=== PATIENT | male | born 1960 | race Caucasian/White ===

== ENCOUNTER 2017-03-02 20:01 | Inpatient (IN) | payer BC ==
[~2017-03-02] VITALS: Ht 185.4 cm; Wt 72.1 kg
--- NOTE | ~2017-03-02 | PRO ---
PATIENT:LEONIDAS HODGSON MEDICAL RECORD: [id number] : 60 LOCATION:D.M2 D.2135 ADMISSION DATE: 03/02/17 PROCEDURE PERFORMED BY: FOSTER GARAY MD DATE OF PROCEDURE: 03/05/2017 PROCEDURE: Fiberoptic bronchoscopy. INDICATION: Mr. Hodgson is a 56-year-old gentleman who has pneumonia, upper lobe. Fiberoptic bronchoscopy was carried out to inspect the airway as well as to obtain specimens for culture and sensitivity. MONITORING: EKG, pulse, blood pressure, SpO2 were monitored throughout the procedure. PROCEDURE IN DETAIL: The bronchoscope was easily passed through the mouth. He has some anatomical abnormality because of CA at the base of the tongue. The vocal cords were normal, moving equally on phonation. The main trachea was normal with thick yellowish secretion in the main trachea. The feroz was sharp. The left main bronchus subsegment to the left lower lobe, left upper lobe and lingula within normal range. No endobronchial lesion was seen. There are yellowish secretions on the left side. The right main bronchus was normal. The subsegment to the right upper lobe, right middle lobe, right lower lobe within normal range. No endobronchial lesions seen. There were also thick yellowish secretions on the right side. Specimen washing was obtained for routine culture and sensitivity, AFB and fungus as well as cytology. The patient tolerated the procedure very well. I will recommend to have ENT consultation for evaluation of his upper airway. TRANSINT:[id number] Voice Confirmation ID: [id number] DOCUMENT ID: [id number] FOSTER GARAY MD CC: CLEO CORTES DO [id number] DICTATION DATE: 03/05/17 1237 PASSENGER SERVICE MANAGER: 03/06/17 1231 DIS IN 03/05/17 [place] [id number] [place] [id number]
--- NOTE | ~2017-03-02 | CN ---
PATIENT NAME:LEONIDAS HODGSON MEDICAL RECORD: [id number] : 60 LOCATION:D. D.2135 ADMIT DATE: 03/02/17 ACCOUNT: [id number] CONSULTING PHYSICIAN: FOSTER GARAY MD REFERRING PHYSICIAN: JV CORTES DO DATE OF CONSULTATION: 03/03/2017 PULMONOLOGY CONSULTATION CONSULT REQUESTING PHYSICIAN: vJ Cortes MD. REASON FOR CONSULTATION: Pneumonia, acute cough. HISTORY OF PRESENT ILLNESS: Mr. Hodgson is a 56-year-old gentleman who has acute cough and bronchitis. He had some fever last Wednesday. He was not feeling well. The patient was given some antibiotic. The patient went back to work. Yesterday he was seen in Dr. Cortes's office and the chest x-ray showed that he had pneumonia, which is not resolving. Now the patient was admitted to the hospital for pneumonia and further IV antibiotic. He was also having some shortness of breath. REVIEW OF SYSTEMS: HEENT: There is sinus congestion. RESPIRATORY: As in history of present illness. CARDIOVASCULAR: Negative. GASTROINTESTINAL: Negative. GENITOURINARY: Negative. Other review of the systems is negative. PAST MEDICAL HISTORY: 1. Mild COPD. 2. History of CA of the tongue diagnosed in 2009. He was treated with radiation therapy. He is cancer-free. Follow up with oncologist. PAST SURGICAL HISTORY: He had a T&A in 1970. ALLERGIES: There are no known drug allergies. MEDICATIONS: He is on metoprolol and aspirin. PERSONAL AND SOCIAL HISTORY: The patient is an ex-smoker. He quit in 2009. He was diagnosed with cancer of the tongue. He is a nondrinker. FAMILY HISTORY: Unknown. Noncontributory. PHYSICAL EXAMINATION: GENERAL: Now, the patient is lying comfortably in bed. He is not in acute distress. VITAL SIGNS: The blood pressure is 105/71, pulse is 51, respirations are 16 and temperature 97.5. SPO2 is 97% on 2 liters. HEENT: Conjunctivae were pink. Sclerae nonicteric. NECK: Supple, no JVD. CHEST: Excursion is minimal on both sides. No wheeze, no rales. HEART: Rhythm regular, normal sound. No murmur. ABDOMEN: Soft, bowel sounds present. No hepatosplenomegaly. CONSULT REPORT [id number] LEONIDAS HODGSON RECTAL: Deferred. EXTREMITIES: No cyanosis, no clubbing, no pedal edema. SKIN: Warm, normal turgor. CENTRAL NERVOUS SYSTEM: The patient is awake and alert. There is no obvious cranial nerve abnormality. The gait was not tested. CHEST RADIOGRAPH: There is apical scarring. No acute infiltrate. OTHER LABORATORY DATA: CBC: The WBC on admission was 15.3, hemoglobin 13.4, hematocrit 39.4, the platelet count 305. Chemistry: Sodium 139, potassium 3.5, BUN is 15, creatinine 0.9, glucose 93. IMPRESSION: 1. Possible pneumonia, biapical; possible scarring from previous infectious process. I will doubt radiation pneumonitis. 2. Acute cough. 3. Leukocytosis secondary to acute tracheobronchitis. 4. Chronic obstructive pulmonary disease without exacerbation. 5. History of cancer of the tongue status post radiation therapy in 2009. 6. Ex-smoker. RECOMMENDATIONS: 1. I will check the CT scan of the chest. 2. Adjust the dose of Levaquin. 3. Mucinex DM 2 tablets b.i.d. 4. Followup labs. Dr. Cortes, thank you for involving me in the care of Mr. Hodgson. TRANSINT:[id number] Voice Confirmation ID: [id number] DOCUMENT ID: [id number] FOSTER GARAY MD CC: JV CORTSE DO [id number] DICTATION DATE: 03/03/17 151 WASTEWATER PROCESS ENGINEER: 03/03/17 7193 ADM IN [facility] [address] [place] [place] [id number]
[2017-03-02 19:00] VITALS: BP 98/57
[2017-03-02 21:11] LABS: BASOPHILS 0.2 % (0-2); HEMATOCRIT 39.4 % (42.0-54.0); HEMOGLOBIN 13.4 g/dL (13.5-17.5); IMMATURE GRANULOCYTES 0.4 % (0-5); LYMPHOCYTES 9.3 % (15-50); MCH 32.4 pg (26.0-34.0); MCV 95.4 fL (80.0-100.0); MEAN PLATELET VOLUME 9.6 fL (7.4-10.4); MONOCYTES 6.9 % (2-11); NEUTROPHILS 82.2 % (40-80); PLATELET COUNT 305 10x3/uL (130-400); RBC 4.13 10x6/uL (4.20-6.10); RDW 12.9 % (11.5-14.5); WBC 16.3 10x3/uL (4.8-10.8)
[2017-03-02] MEDS ORDERED: OMNICEF300 MG PO (21:29)
[2017-03-02] MEDS ORDERED: TOPROL XL25 MG PO (21:29)
[2017-03-02] MEDS ORDERED: MUCINEX600 MG PO (21:30)
[2017-03-02] MEDS ORDERED: BAYER CHEWABLE81 MG PO (21:30)
[2017-03-02 21:36] LABS: ALBUMIN 3.5 g/dL (3.4-5.0); ALKALINE PHOSPHATASE 116 U/L (46-116); ALT (SGPT) 21 U/L (10-68); CALC OSMOLALITY 279 mosm/kg (275-300); CALCIUM 9.1 mg/dL (8.5-10.1); CARBON DIOXIDE 29.4 mmol/L (21.0-32.0); CHLORIDE - SERUM 102 mmol/L (98-107); CREATININE - SERUM 0.9 mg/dL (0.6-1.3); GLUCOSE 94 mg/dL (74-106); PROTEIN - SERUM 6.5 g/dL (6.4-8.2); SODIUM 140 mmol/L (136-145); UREA NITROGEN 16 mg/dL (7-18); eGFR NON AFRICAN AMERICAN > 90 mL/min (90-120)
[2017-03-03 04:00] VITALS: BP 105/58
[2017-03-03 04:21] LABS: BASOPHILS 0.1 % (0-2); EOSINOPHILS 3.2 % (0-7); HEMATOCRIT 39.1 % (42.0-54.0); HEMOGLOBIN 13.2 g/dL (13.5-17.5); IMMATURE GRANULOCYTES 0.2 % (0-5); LYMPHOCYTES 12.4 % (15-50); MCH 32.4 pg (26.0-34.0); MCHC 33.8 g/dL (31.0-37.0); MCV 95.8 fL (80.0-100.0); MEAN PLATELET VOLUME 9.6 fL (7.4-10.4); MONOCYTES 8.5 % (2-11); NEUTROPHILS 75.6 % (40-80); PLATELET COUNT 289 10x3/uL (130-400); RBC 4.08 10x6/uL (4.20-6.10); RDW 12.9 % (11.5-14.5)
[2017-03-03 04:26] LABS: WBC 10.4 10x3/uL (4.8-10.8)
[2017-03-03 05:12] LABS: ALBUMIN 2.8 g/dL (3.4-5.0); ALKALINE PHOSPHATASE 106 U/L (46-116); ALT (SGPT) 21 U/L (10-68); CALCIUM 8.2 mg/dL (8.5-10.1); CARBON DIOXIDE 30.5 mmol/L (21.0-32.0); CREATININE - SERUM 0.9 mg/dL (0.6-1.3); GLUCOSE 93 mg/dL (74-106); PROTEIN - SERUM 6.4 g/dL (6.4-8.2); UREA NITROGEN 15 mg/dL (7-18); eGFR NON AFRICAN AMERICAN > 90 mL/min (90-120)
[2017-03-03 06:13] LABS: CALC OSMOLALITY 278 mosm/kg (275-300); CHLORIDE - SERUM 103 mmol/L (98-107); POTASSIUM - SERUM 3.5 mmol/L (3.5-5.1); SODIUM 139 mmol/L (136-145)
[2017-03-03 06:39] VITALS: BP 98/57; BMI 18.3
[2017-03-03 07:50] VITALS: BP 108/64
[2017-03-03 11:02] VITALS: Ht 185.4 cm; Wt 72.1 kg
[2017-03-03 11:19] VITALS: BP 105/71
[2017-03-03 15:46] VITALS: BP 108/78
[2017-03-03 19:00] VITALS: BP 101/62
[2017-03-04 04:00] VITALS: BP 98/53
[2017-03-04 05:02] LABS: BASOPHILS 0.2 % (0-2); HEMATOCRIT 40.7 % (42.0-54.0); HEMOGLOBIN 13.6 g/dL (13.5-17.5); IMMATURE GRANULOCYTES 0.1 % (0-5); LYMPHOCYTES 11.3 % (15-50); MCH 32.1 pg (26.0-34.0); MCHC 33.4 g/dL (31.0-37.0); MEAN PLATELET VOLUME 9.6 fL (7.4-10.4); MONOCYTES 8.3 % (2-11); NEUTROPHILS 78.1 % (40-80); PLATELET COUNT 316 10x3/uL (130-400); RBC 4.24 10x6/uL (4.20-6.10); RDW 12.8 % (11.5-14.5); WBC 9.1 10x3/uL (4.8-10.8)
[2017-03-04 05:27] LABS: ALBUMIN 2.9 g/dL (3.4-5.0); ALKALINE PHOSPHATASE 104 U/L (46-116); ALT (SGPT) 25 U/L (10-68); CALCIUM 8.8 mg/dL (8.5-10.1); CHLORIDE - SERUM 105 mmol/L (98-107); CREATININE - SERUM 0.8 mg/dL (0.6-1.3); GLUCOSE 100 mg/dL (74-106); PROTEIN - SERUM 6.5 g/dL (6.4-8.2); SODIUM 141 mmol/L (136-145); eGFR NON AFRICAN AMERICAN > 90 mL/min (90-120)
[2017-03-04 05:30] LABS: CALC OSMOLALITY 278 mosm/kg (275-300); POTASSIUM - SERUM 4.2 mmol/L (3.5-5.1); UREA NITROGEN 7 mg/dL (7-18)
[2017-03-04 07:00] VITALS: BP 100/68
[2017-03-04 12:53] VITALS: BP 109/66
[2017-03-04 16:56] VITALS: BP 121/81
[2017-03-04 19:00] VITALS: BP 128/70
[2017-03-04 22:05] LABS: BASOPHILS 0.2 % (0-2); EOSINOPHILS 1.9 % (0-7); HEMATOCRIT 41.3 % (42.0-54.0); IMMATURE GRANULOCYTES 0.2 % (0-5); LYMPHOCYTES 9.8 % (15-50); MCH 32.3 pg (26.0-34.0); MCHC 33.9 g/dL (31.0-37.0); MCV 95.2 fL (80.0-100.0); MEAN PLATELET VOLUME 9.6 fL (7.4-10.4); MONOCYTES 7.9 % (2-11); PLATELET COUNT 342 10x3/uL (130-400); RBC 4.34 10x6/uL (4.20-6.10); RDW 12.6 % (11.5-14.5); WBC 11.3 10x3/uL (4.8-10.8)
[2017-03-04 22:13] LABS: APTT 32.6 SECONDS (22.8-39.4); INR 1.03 (0.85-1.17); PROTIME 13.3 SECONDS (11.6-15.0)
[2017-03-05] VITALS (8 sets, daily range): BP systolic 99–112; BP diastolic 46–72
[2017-03-05] MEDS ORDERED: LEVAQUIN750 MG PO (15:56)
[2017-03-06 19:09] LABS: ACID FAST SMEAR Negative (()); AFB SPECIMEN PROCESSING Concentration (())
[2017-03-08 13:13] LABS: FUNGUS STAIN Final report (())
== END 2017-03-05 16:51 | disposition home or self-care (01) | DRG 190 ==
LOC: D.M2 20:01
PROVIDERS: Internal Medicine Pulmonary Disease; ADMIT Family Medicine
PROC: 0BB38ZX Excision of Right Main Bronchus, Via Natural or Artificial Opening Endoscopic, Diagnostic (ICD-10-PCS; 2017-03-05)
PROC: 0BB78ZX Excision of Left Main Bronchus, Via Natural or Artificial Opening Endoscopic, Diagnostic (ICD-10-PCS; principal; 2017-03-05 12:30)
DX: J44.0 Chronic obstructive pulmonary disease with (acute) lower respiratory infection (principal); J18.9 Pneumonia, unspecified organism; Z87.891 Personal history of nicotine dependence; Z85.810 Personal history of malignant neoplasm of tongue

== ENCOUNTER 2020-10-14 20:29 | Emergency (ER) | payer OTHER ==
[~2020-10-14] VITALS: Ht 185.4 cm; Wt 63.5 kg
[~2020-10-14 20:29] MED LIST: BAYER CHEWABLE81 MG PO; LEVAQUIN750 MG PO; MUCINEX600 MG PO; OMNICEF300 MG PO; TOPROL XL25 MG PO
[2020-10-14 20:36] VITALS: Ht 185.4 cm; Wt 63.5 kg
[2020-10-14 20:53] LABS: BASOPHILS 0.1 % (0-2); EOSINOPHILS 0.4 % (0-7); HEMATOCRIT 42.5 % (42.0-54.0); HEMOGLOBIN 14.5 g/dL (13.5-17.5); IMMATURE GRANULOCYTES 0.5 % (0-5); LYMPHOCYTE ABS# 0.39 10x3/uL (1.32-3.57); MCH 32.3 pg (26.0-34.0); MCHC 34.1 g/dL (31.0-37.0); MCV 94.7 fL (80.0-100.0); MEAN PLATELET VOLUME 9.5 fL (7.4-10.4); MONOCYTES 4.8 % (2-11); NEUTROPHIL ABS# 17.93 10x3/uL (1.78-5.38); NEUTROPHILS 92.2 % (40-80); RBC 4.49 10x6/uL (4.20-6.10); RDW 13.4 % (11.5-14.5); WBC 19.4 10x3/uL (4.8-10.8)
[2020-10-14 20:55] LABS: PLATELET COUNT 268 10x3/uL (130-400)
[2020-10-14 21:10] LABS: CALC OSMOLALITY 276 mosm/kg (275-300); CALCIUM 8.7 mg/dL (8.5-10.1); CHLORIDE - SERUM 99 mmol/L (98-107); CREATININE - SERUM 0.9 mg/dL (0.6-1.3); GLUCOSE 100 mg/dL (74-106); POTASSIUM - SERUM 3.5 mmol/L (3.5-5.1); SODIUM 137 mmol/L (136-145); UREA NITROGEN 21 mg/dL (7-18); eGFR NON AFRICAN AMERICAN > 90 mL/min (90-120)
[2020-10-14 21:22] LABS: ALBUMIN 3.6 g/dL (3.4-5.0); ALKALINE PHOSPHATASE 119 U/L (30-120); ALT (SGPT) 23 U/L (10-68); BILIRUBIN - TOTAL 0.72 mg/dL (0.2-1.3); CKMB 2.1 U/L (0.0-3.6); CREATINE KINASE 104 UL (21-232); PROTEIN - SERUM 7.1 g/dL (6.4-8.2)
[2020-10-14 21:26] LABS: TROPONIN-I < 0.017 ng/mL (0.000-0.060)
[2020-10-14 21:33] LABS: INR 1.24 (0.85-1.17); PROTIME 14.5 SECONDS (11.6-15.0)
[2020-10-14 21:47] LABS: BILIRUBIN NEGATIVE (NEGATIVE); KETONE NEGATIVE (NEGATIVE); NITRITE NEGATIVE (NEGATIVE); UROBILINOGEN NORMAL mg/dL (< 2)
[2020-10-15] MEDS ORDERED: ALBUTEROL SULF8.5 GM INH (00:45)
[2020-10-15] MEDS ORDERED: PREDNISONE20 MG PO (00:45)
[2020-10-15] MEDS ORDERED: LEVAQUIN750 MG PO (00:45)
[2020-10-15 06:30] VITALS: BP 100/60
== END 2020-10-15 07:04 | disposition home or self-care (01) ==
LOC: D.ER 20:29
PROVIDERS: Family Medicine
DX: J18.9 Pneumonia, unspecified organism (principal); J44.9 Chronic obstructive pulmonary disease, unspecified; R06.02 Shortness of breath